=== PATIENT | female | born 1935 | race Caucasian/White ===

== ENCOUNTER 2018-06-13 14:47 | Inpatient (IN) ==
[2018-06-13] MEDS ORDERED: Mag Hydrox/Al Hydrox/Simeth 30 ML UDC PO PRN (16:43)
[2018-06-13] MEDS ORDERED: *HR* OxyCODONE Immed Rel 5 MG TABLET PO PRN ×2 (16:57)
[2018-06-13] MEDS ORDERED: NON-FORMULARY MEDICATION 1 EACH EACH (Albuterol Sulfate [Proair Respiclick] 2 PUFF) IH PRN (17:04)
[2018-06-13] MEDS ORDERED: Albuterol 2.5 MG/3 ML NEBULIZER IH PRN ×2 (17:04→20:30)
[2018-06-13] MEDS: *HR* Heparin 5,000 UNIT/ML VIAL SQ SCH (18:30)
[2018-06-13] MEDS ORDERED: Budesonide/Formoterol 80/4.5 MDI IH ONE (19:42)
[2018-06-13] MEDS: Budesonide/Formoterol 80/4.5 MDI IH SCH (19:46)
[2018-06-13] MEDS: Letrozole 2.5 MG TABLET PO SCH (21:09)
[2018-06-13] MEDS: Aspirin 325 MG TABLET PO SCH (21:09)
[2018-06-13] MEDS: Pregabalin 75 MG CAPSULE PO SCH (21:10)
[2018-06-14 06:41] LABS: Basophils % 0.5 %; Eosinophils # 0.1 K/mcL (0.0-0.6); Hematocrit 24.1 % (35.3-44.9); Hemoglobin 7.8 g/dL (11.5-15.4); Immature Granulocytes % 0.3 % (0-4); Lymphocytes # 0.9 K/mcL (0.6-4.6); Lymphocytes % 14.8 %; Mean Corpuscular HGB Conc 32.4 g/dL (31.6-35.5); Mean Corpuscular Hemoglobin 30.7 pg (28.0-33.3); Mean Corpuscular Volume 94.9 fL (83.0-100.0); Mean Platelet Volume 10.6 fL (9.4-12.4); Monocytes # 0.9 K/mcL (0.0-1.3); Monocytes % 14.8 %; Platelet Count 131 K/mcL (140-400); Red Blood Count 2.54 M/mcL (3.82-4.97); Red Cell Distribution Width 13.3 % (11.5-14.5); Segmented Neutrophils % 67.6 %
[2018-06-14 06:42] LABS: INR 1.1; Prothrombin Time 12.8 Seconds (9.4-12.1)
[2018-06-14] MEDS: *HR* Heparin 5,000 UNIT/ML VIAL SQ SCH ×2 (06:43→17:47)
[2018-06-14 06:51] LABS: Alanine Aminotransferase 12 Units/L (7-52); Albumin 2.9 g/dL (3.5-5.7); Albumin/Globulin Ratio 1.3 (1.1-2.2); Alkaline Phosphatase 50 Units/L (34-104); Aspartate Amino Transferase 32 Units/L (13-39); BUN/Creatinine Ratio 21 (6-26); Bilirubin,Total 0.4 mg/dL (0.3-1.0); Blood Urea Nitrogen 21 mg/dL (8-23); Carbon Dioxide 25 mEq/L (23-29); Chloride 108 mEq/L (98-107); Globulin 2.2 g/dL (2.4-3.5); Glucose 111 mg/dL (70-105); Osmolality,Calculated 288 (280-300); Potassium 4.5 mEq/L (3.5-5.1); Sodium 137 mEq/L (136-145); Total Protein 5.1 g/dL (6.4-8.9); eGFR For Non-African Americans 52 (> 60)
[2018-06-14] MEDS: Budesonide/Formoterol 80/4.5 MDI IH SCH ×2 (09:11→21:01)
[2018-06-14] MEDS: Lisinopril 20 MG TABLET PO SCH (09:40)
[2018-06-14] MEDS: Cholecalciferol (D-3) 1,000 UNIT TABLET PO SCH (09:40)
--- NOTE | 2018-06-14 12:21 | Internal Med History&Physical ---
Addendum entered and electronically signed by Sherif Lynn MD 06/14/18 13:55: I have personally performed a face to face evaluation on this patient. I have r eviewed and agree with the care plan. History and Exam by me shows: Patient is status post lumbar fusion by Dr. Early on 06/10/2018. The patient had postoperative confusion which apparently was delirium and this is slowly but surely improving. She and her note that it is worse at night. She has not moved her bowels since before surgery and we talked about this, at length. She had a right foot drop and numbness at her right foot but this is improving, postoperatively. Past medical history was reviewed and there is no change, postoperatively. She is mildly hard of hearing and wears dentures. She has a left neck without injury or trauma. This began last evening. There is no associated radicular symptoms, etc. She also has a sore throat which began last night. Patient has no complaint of chest discomfort, dyspnea, orthopnea, breathing problems, palpitations, nausea or vomiting, constipation or diarrhea, other changes in bowel habits, heartburn, difficulty with urination, kidney problems or kidney stones, fevers chills or sweats, rash or itching, seizures, headache or lightheadedness, heat or cold intolerance, blood problems or anemia, or other new complaints, except as mentioned above. Review of systems is otherwise negative. Examination: (Except as mentioned above): General: In no apparent distress, alert and oriented 3. Head: Atraumatic and normocephalic. Eyes: Extraocular muscles are intact, pupils equal round and reactive to light and accommodation. Sclerae anicteric. Ears: External ears are normal to inspection and hearing is grossly normal. Nose: Patent without lesion noted. Mouth: No intraoral lesions seen. She has full dentures in place. Throat is normal to appearance. Neck: Supple with trachea midline. There is no thyromegaly or adenopathy and carotids are 2+ without bruit heard. Respiratory: No use of accessory muscles. Lungs are clear throughout. Normal airflow. Cardiovascular: Regular rate and rhythm without murmur appreciated. Abdomen: Bowel sounds are normal. No hepatosplenomegaly masses or tenderness. Obese and therefore difficult to palpate deeply. She is wearing an abdominal brace for back support.Patient is examined upright in chair and this also limits exam. Extremities: No cyanosis clubbing or edema. Neurological: A and O 3. Cranial nerves II through XII are intact. No focal deficits and no abnormal movements or postures. Skin: Warm and non-diaphoretic with no lesions noted. Breasts, pelvic and rectal: Not examined. She will continue with therapies as planned. I encouraged and patient that delirium should be improving over the next several days. We will decrease her pain medicines as tolerated and prefer Tylenol, avoiding opioids as possible. Patient and were acceptable. We will use MiraLAX for a laxative, hoping that that will take care of her constipation. She has anemia which I assume is at least partially acute blood loss and this will need to be followed, checking again on June 17. Original Note: Date of Encounter: 06/14/18 Time of Encounter: 12:14 Assessment and Plan (1) S/P lumbar laminectomy Current visit: Yes Status: Acute Patient was transferred to this facility from an [facility] after having a L3-S1 lumbar longo/fix/fusion. On neurological exam patient does show right dorsiflexion weakness at 3/5 but otherwise no focal deficits noted. Patient has experienced confusion since her surgical intervention, but presently is cooperative. Patient complains of slight pain to lumbar surgical site denies any lumbar radicular symptoms. Afebrile. His therapy evaluation pending. We will continue with current medications. Will change patient's current pain medication to tramadol due to current confusion while on oxycodone. (2) COPD (chronic obstructive pulmonary disease) Current visit: Yes Status: Chronic No acute issues. Patient's lungs are clear throughout. No productive cough and respiratory effort appears relaxed. We will continue with current medications. Qualifiers: COPD type: unspecified COPD Qualified Code(s): J44.9 - Chronic obstructive pulmonary disease, unspecified (3) Confusion Current visit: Yes Status: Acute Patient has experienced confusion since her surgery. No documented history of dementia noted. Patient currently is cooperative and appears only mildly confused. We will change patient's pain medication to tramadol. Will evaluate patient's sleep medications. (4) Hypertension Current visit: Yes Status: Chronic Vital signs are stable. We will continue with current medications. Qualifiers: Hypertension type: unspecified Qualified Code(s): I10 - Essential (primary) hypertension Internal Medicine - H&P: HPI Chief complaint: s/p lumbar longo/fix/fusion Admitted From: Hospital to Hospital Transfer Plans for Post Hospital Care: Home History of present illness: Ms. Nayak is a 82 year old female, who was transferred to this facility for rehabilitation after having a L3-S1 lumbar longo/fix/fusion on 06/10/18. Patient had a fairly uneventful surgical recovery while at [facility]. Patient did experience postoperative confusion that has remained pleasant and compliant with care. No documented history of dementia noted in records. Patient has a long history of chronic low back pain, hypertension, a aortic aneurysm, COPD and a history of breast CA, which was surgically treated in July 2017. Patient currently appears relaxed and complains of mild surgical pain to her lumbar area . Denies any radicular symptoms. Patient currently is mildly confused but able to answer simple questions appropriately. Patient is cooperative with exam. Denies any chest discomforts, palpitations, dyspnea or productive cough. Lumbar surgical wound with dressing appears dry and intact. No focal deficits noted on neurological exam except for weakness on her right dorsi flexion, which reporte dly was present during her exam at previous facility. Past Med Surg Social Fam HX - Past Medical History Medical history: COPD, hyperlipidemia, hypertension Additional medical history: AAA, OA, pacer Psychiatric history: no psych history - Past Surgical History Surgical History: cataract, cholecystectomy, pacemaker/AICD Additional surgical history: supris midurethal sling/cystoscopy,LHC,dual chamber permanent pacemaker,colonoscopy,US guided lt breast bx - Social History Smoking Status: Never smoker Smokeless Tobacco Status: No Alcohol use: none Drug use: none Internal Medicine - H&P: Meds Aspirin 325 mg PO QPM 01/03/15 [History] Calcium Carbonate/Vitamin D3 [Calcium 600 + D Tablet] 1 tab PO DAILY 01/03/15 [History] Lisinopril [Zestril] 20 mg PO DAILY 01/03/15 [History] Metoprolol [Lopressor] 25 mg PO BID 01/03/15 [History] Simvastatin [Zocor] 20 mg PO HS 01/03/15 [History] Cyanocobalamin (B-12) [Vitamin B12] 1,000 mcg IM QMONTH 12/14/16 [History] Albuterol Neb [Proventil Neb] 2.5 mg IH DAILY PRN 06/26/17 [History] Albuterol Sulfate [Proair Respiclick] 2 puff IH PRN PRN 06/26/17 [History] Fluticasone/Salmeterol [Advair 250-50 Diskus] 1 tab IH BID 06/26/17 [History] Pregabalin [Lyrica] 150 mg PO 2100 03/20/18 [History] Benzonatate [Tessalon] 100 mg PO TID #15 capsule 04/25/18 [Rx] Magic Mouthwash [Magic Mouthwash BLM] 10 ml PO QID #240 ml 04/25/18 [Rx] Montelukast [Singulair] 10 mg PO DAILY #30 tablet 04/25/18 [Rx] Nystatin [Nystatin Suspension] 15 ml PO TID #240 oral.susp 04/25/18 [Rx] Letrozole [Femara] 2.5 mg PO QPM 06/13/18 [History] Allergy/AdvReac Type Severity Reaction Status Date / Time solifenacin [From Vesicare] Allergy See Verified 04/25/18 11:56 Comments Sulfa (Sulfonamide Allergy See Verified 04/25/18 11:56 Antibiotics) Comments trospium Allergy See Verified 04/25/18 11:56 Comments All Systems PM: A 10-system review of systems was performed and is negative for pertinent findings except as documented above in the HPI. - Constitutional Constitutional: as per HPI, no chills, no fever(s), no night sweats - EENT Eyes: as per HPI, no change in vision, no discharge, no pain, no photophobia Ears: no ear discharge, no ear pain, no tinnitus Nose, mouth and throat: as per HPI, no dysphagia, no nasal discharge, no neck pain, no sore throat - Breasts Breasts: as per HPI - Cardiovascular Cardiovascular ROS IM: as per HPI, no chest pain, no diaphoresis, no dyspnea, no lightheadedness, no palpitations, no syncope - Respiratory Respiratory: as per HPI, no cough, no dyspnea, no wheezing, no excessive phlegm production - Gastrointestinal Gastrointestinal: as per HPI, no abdominal pain, no diarrhea, no hematemesis, no hematochezia, no melena, no nausea, no vomiting - Genitourinary Genitourinary: as per HPI, no change in urinary stream, no dysuria, no flank pain, no hematuria - Musculoskeletal Musculoskeletal ROS IM: as per HPI, no numbness, no tingling - Integumentary Integumentary IM: as per HPI, no rash, no unusual bruising - Neurological Neurological ROS: as per HPI, no confusion, no convulsions, no focal weakness, no numbness, no tingling, no tremor(s) - Hematologic/Lymphatic Hematologic/Lymphatic: no easy bruising - Constitutional Vitals: Temp Pulse Resp BP Pulse Ox 98.8 F 81 16 106/67 96 06/14/18 07:01 06/14/18 07:01 06/14/18 07:01 06/14/18 07:01 06/14/18 07:01 General appearance: Present: A&O X 2 Exam: Patient with some hesitation on answering complex questions but answers most questions appropriately. Follows commands well. Patient unable to relate time but otherwise appears fairly oriented. - Head Head exam: Present: atraumatic, normocephalic - Eye Eye exam: Present: PERRL, conjuntiva pink, sclera anicteric Pupils: Present: PERRL - Neck Neck exam general surgery: Present: supple, trachea midline. Absent: lymphadenopathy - Respiratory Respiratory exam: Present: CTAB. Absent: accessory muscle use, rales, rhonchi, wheezes - Cardiovascular Cardiovascular exam: Present: RRR, +S1, +S2. Absent: diastolic murmur, gallop, rubs, systolic murmur - GI/Abdominal GI/Abdominal exam: Present: normal bowel sounds, soft, no peritoneal signs. Absent: distended, tenderness - Extremities Exam Extremities exam: Present: warm, radial pulses palpable and symmetrical. Absent: calf tenderness, cyanotic, pedal edema - Back Exam Additional comments: Lumbar region with surgical dressing that is dry and intact. Patient with LSO brace - Neurological Exam Neurological exam: Present: CN II-XII intact, oriented X3, no focal deficits. Absent: pronater drift, facial droop, speech deficit - Skin Skin exam: Present: dry, intact Internal Med - H&P Results - Labs CBC & Chem 7: 06/14/18 06:17 06/14/18 06:17 Labs: Short CBC 06/14/18 Range/Units 06:17 WBC 5.9 (4.3-11.1) K/mcL Hgb 7.8 L (11.5-15.4) g/dL Hct 24.1 L (35.3-44.9) % Plt Count 131 L (140-400) K/mcL Neutrophils # 4.0 (1.6-8.9) K/mcL BMP 06/14/18 06:17 Sodium 137 Potassium 4.5 Chloride 108 H Carbon Dioxide 25 BUN 21 Creatinine 1.01 Glucose 111 H Calcium 9.0 Liver Function 06/14/18 Range/Units 06:17 Total Bilirubin 0.4 (0.3-1.0) mg/dL AST 32 (13-39) Units/L ALT 12 (7-52) Units/L Alkaline Phosphatase 50 (34-104) Units/L Albumin 2.9 L (3.5-5.7) g/dL - VTE Documentation of Mechanical Device: Graduated compression elastic hosiery
[2018-06-14] MEDS: Acetaminophen 325 MG TABLET PO PRN (14:54)
[2018-06-14] MEDS: Letrozole 2.5 MG TABLET PO SCH (20:59)
[2018-06-14] MEDS: Pregabalin 75 MG CAPSULE PO SCH (20:59)
[2018-06-14] MEDS: Aspirin 325 MG TABLET PO SCH (20:59)
[2018-06-14 21:54] LABS: Bilirubin,Urine Negative (Negative); Blood,Urine Negative (Negative); Clarity,Urine Clear (Clear); Color,Urine Yellow (Yellow); Glucose,Urine (UA) Normal (Normal); Ketones,Urine Negative (Negative); Leukocyte Esterase,Urine Negative (Negative); Nitrite,Urine Negative (Negative); Protein,Urine Negative (Neg-Trace); Urobilinogen,Urine Normal (Normal)
[2018-06-15] MEDS: *HR* Heparin 5,000 UNIT/ML VIAL SQ SCH ×2 (04:44→17:47)
[2018-06-15 06:00] LABS: Hematocrit 22.6 % (35.3-44.9); Hemoglobin 7.4 g/dL (11.5-15.4); Mean Corpuscular HGB Conc 32.7 g/dL (31.6-35.5); Mean Corpuscular Hemoglobin 30.8 pg (28.0-33.3); Mean Corpuscular Volume 94.2 fL (83.0-100.0); Mean Platelet Volume 10.5 fL (9.4-12.4); Platelet Count 145 K/mcL (140-400); Red Cell Distribution Width 13.2 % (11.5-14.5)
[2018-06-15 06:15] LABS: Alanine Aminotransferase 14 Units/L (7-52); Albumin 2.9 g/dL (3.5-5.7); Albumin/Globulin Ratio 1.3 (1.1-2.2); Alkaline Phosphatase 55 Units/L (34-104); Aspartate Amino Transferase 33 Units/L (13-39); BUN/Creatinine Ratio 20 (6-26); Bilirubin,Total 0.4 mg/dL (0.3-1.0); Blood Urea Nitrogen 20 mg/dL (8-23); Calcium 8.9 mg/dL (8.6-10.3); Carbon Dioxide 27 mEq/L (23-29); Chloride 106 mEq/L (98-107); Globulin 2.2 g/dL (2.4-3.5); Glucose 106 mg/dL (70-105); Magnesium 1.9 mg/dL (1.6-2.6); Osmolality,Calculated 287 (280-300); Potassium 4.1 mEq/L (3.5-5.1); Sodium 137 mEq/L (136-145); Total Protein 5.1 g/dL (6.4-8.9); eGFR For Non-African Americans 52 (> 60)
[2018-06-15] MEDS: Acetaminophen 325 MG TABLET PO PRN (06:55)
[2018-06-15] MEDS: Cholecalciferol (D-3) 1,000 UNIT TABLET PO SCH (08:55)
[2018-06-15] MEDS: Lisinopril 20 MG TABLET PO SCH (08:55)
[2018-06-15] MEDS: traMADol 50 MG TABLET PO PRN ×2 (09:07→20:29)
--- NOTE | 2018-06-15 09:15 | Internal Med Progress Note ---
Date of Encounter: 06/15/18 Time of Encounter: 09:13 - Assessment and plan (1) Anemia Current Visit: Yes Status: Acute Assessment and plan: H/H noted to be low , Iron studies and B12 ordered added iron empirically followup h/h later stool for blood as well Qualifiers: Anemia type: unspecified type Qualified Code(s): D64.9 - Anemia, unspecified (2) S/P lumbar laminectomy Current Visit: Yes Status: Acute Assessment and plan: Getting rehab Her incision is doing well overall getting better still has drop foot may need a brace on right side will follow (3) COPD (chronic obstructive pulmonary disease) Current Visit: Yes Status: Chronic Assessment and plan: using inhalers doing well no acute issues Qualifiers: COPD type: unspecified COPD Qualified Code(s): J44.9 - Chronic obstructive pulmonary disease, unspecified (4) Hypertension Current Visit: Yes Status: Chronic Assessment and plan: stable continue present meds Qualifiers: Hypertension type: unspecified Qualified Code(s): I10 - Essential (primary) hypertension - Subjective Interval history: no active issues except for constipation Her pain seems to be well controlled. Getting rehab . no fever or chills no nausea vomiting or diarrhea breathing is baseline - Constitutional Vitals: Temp Pulse Resp BP Pulse Ox 98.8 F 78 15 117/56 96 06/15/18 07:29 06/15/18 07:29 06/15/18 07:29 06/15/18 07:29 06/15/18 07:29 General appearance: Present: A&O X 2, A&O X 3, pleasant, no acute distress - Head Head exam: Present: atraumatic - Eye Eye exam: Present: EOMI, PERRL Pupils: Present: normal accommodation - Neck Neck exam general surgery: Present: supple. Absent: tenderness, nuchal rigidity, thyromegaly - Respiratory Respiratory exam: Present: CTAB. Absent: accessory muscle use, chest wall tenderness, prolonged expiratory phase, rales, respiratory distress, rhonchi, stridor, wheezes, tachypnea - Cardiovascular Cardiovascular exam: Present: RRR, +S1, +S2. Absent: distant heart sounds, gallop, JVD, rubs, systolic murmur, tachycardia - GI/Abdominal GI/Abdominal exam: Present: normal bowel sounds, soft. Absent: firm, guarding, mass, rebound, rigid, splenomegaly, tenderness, no peritoneal signs - Extremities Exam Extremities exam: Absent: pedal edema, tenderness, warm - Incison Incision: Present: clean and dry, intact. Absent: draining, swollen, inflamed, erythema, purulent, indurated, serous, serosanguinous Comments: has abby - Neurological Exam Neurological exam: Present: CN II-XII intact, oriented X3, strengths equal and symetr throughout. Absent: pronater drift, speech deficit Additional comments: right foot drop Internal Medicine: Result - Labs CBC & Chem 7: 06/15/18 05:25 06/15/18 05:25 Labs: Short CBC 06/15/18 Range/Units 05:25 WBC 4.6 (4.3-11.1) K/mcL Hgb 7.4 L (11.5-15.4) g/dL Hct 22.6 L (35.3-44.9) % Plt Count 145 (140-400) K/mcL BMP 06/15/18 05:25 Sodium 137 Potassium 4.1 Chloride 106 Carbon Dioxide 27 BUN 20 Creatinine 1.01 Glucose 106 H Calcium 8.9 Liver Function 06/15/18 Range/Units 05:25 Total Bilirubin 0.4 (0.3-1.0) mg/dL AST 33 (13-39) Units/L ALT 14 (7-52) Units/L Alkaline Phosphatase 55 (34-104) Units/L Albumin 2.9 L (3.5-5.7) g/dL Urine 06/14/18 Range/Units 21:01 Urine Color Yellow (Yellow) Urine Clarity Clear (Clear) Urine pH 7.0 (5.0-8.0) pH Units Ur Specific [place]kel[place] 1.010 (1.010-1.025) Urine Protein Negative (Neg-Trace) mg/dL Urine Glucose (UA) Normal (Normal) mg/dL - ABG Interpretation ABG results: PT/INR, D-dimer PT 12.8 Seconds (9.4-12.1) H 06/14/18 06:17 - Impressions Impressions Chest X-Ray 06/15/18 08:00 IMPRESSION: No acute abnormality. D/ / Yemi Jiang MD / Yemi Jiang MD Interpreting Provider: Yemi Jiang MD - VTE Documentation of Mechanical Device: Graduated compression elastic hosiery Consult Discharge Plan - Plan Referrals: Satya Munoz DO [Primary Care Provider] -
[2018-06-15 11:05] LABS: Thyroid Stimulating Hormone 3.517 mcIU/mL (0.340-5.600)
[2018-06-15] MEDS: Budesonide/Formoterol 80/4.5 MDI IH SCH ×2 (11:27→20:29)
[2018-06-15] MEDS: Sennosides/Docusate Sodium TABLET PO SCH ×2 (17:47→20:28)
[2018-06-15] MEDS: Aspirin 325 MG TABLET PO SCH (20:27)
[2018-06-15] MEDS: Letrozole 2.5 MG TABLET PO SCH (20:28)
[2018-06-15] MEDS: Pregabalin 75 MG CAPSULE PO SCH (20:28)
[2018-06-16] MEDS: *HR* Heparin 5,000 UNIT/ML VIAL SQ SCH ×2 (06:40→17:59)
[2018-06-16] MEDS: Lisinopril 20 MG TABLET PO SCH (08:38)
[2018-06-16] MEDS: Sennosides/Docusate Sodium TABLET PO SCH ×2 (08:38→21:14)
[2018-06-16] MEDS: Cholecalciferol (D-3) 1,000 UNIT TABLET PO SCH (08:38)
[2018-06-16] MEDS: Budesonide/Formoterol 80/4.5 MDI IH SCH ×2 (08:40→21:15)
--- NOTE | 2018-06-16 09:03 | Internal Med Progress Note ---
Date of Encounter: 06/16/18 Time of Encounter: 09:01 - Assessment and plan (1) Anemia Current Visit: Yes Status: Acute Assessment and plan: Started on iron followup It should help increase her H/H Guaice pending . Qualifiers: Anemia type: iron deficiency Qualified Code(s): D50.0 - Iron deficiency anemia secondary to blood loss (chronic) (2) S/P lumbar laminectomy Current Visit: Yes Status: Acute Assessment and plan: stable pain is getting better she is in PT and tolerating it well she might need a brace for her foot drop (3) COPD (chronic obstructive pulmonary disease) Current Visit: Yes Status: Chronic Assessment and plan: stable using Inhalers no issues at the present time Qualifiers: COPD type: unspecified COPD Qualified Code(s): J44.9 - Chronic obstructive pulmonary disease, unspecified (4) Hypertension Current Visit: Yes Status: Chronic Assessment and plan: stable . continue resent management Qualifiers: Hypertension type: unspecified Qualified Code(s): I10 - Essential (primary) hypertension - Subjective Interval history: No active issues constipation has improved. She was noted to be low i sofia and h/h .Doing better and i mproved at the present time .N nausea vomiting or diarrhea breathing is baseline - Constitutional Vitals: Temp Pulse Resp BP Pulse Ox 98.0 F 76 16 116/75 96 06/16/18 07:03 06/16/18 07:03 06/16/18 07:03 06/16/18 07:03 06/16/18 07:03 General appearance: Present: A&O X 3, pleasant, no acute distress - Head Head exam: Present: atraumatic - Eye Eye exam: Present: EOMI, PERRL. Absent: conjuntiva pink, sclera anicteric Pupils: Present: PERRL - Neck Neck exam general surgery: Present: supple, trachea midline. Absent: tenderness, nuchal rigidity - Respiratory Respiratory exam: Present: CTAB. Absent: prolonged expiratory phase, rales, respiratory distress, stridor, wheezes - Cardiovascular Cardiovascular exam: Present: RRR, +S1, +S2. Absent: JVD, systolic murmur - GI/Abdominal GI/Abdominal exam: Present: normal bowel sounds, soft. Absent: mass, rigid, splenomegaly, tenderness - Extremities Exam Extremities exam: Absent: pedal edema, tenderness - Incison Incision: Present: clean and dry, intact. Absent: red, swollen, inflamed, erythema - Neurological Exam Neurological exam: Present: CN II-XII intact, oriented X3. Absent: pronater drift, facial droop, speech deficit Additional comments: foot drop right side Internal Medicine: Result - Labs CBC & Chem 7: 06/15/18 05:25 06/15/18 05:25 - ABG Interpretation ABG results: PT/INR, D-dimer PT 12.8 Seconds (9.4-12.1) H 06/14/18 06:17 - VTE Documentation of Mechanical Device: Graduated compression elastic hosiery Consult Discharge Plan - Plan Referrals: Satya Munoz DO [Primary Care Provider] -
[2018-06-16] MEDS: traMADol 50 MG TABLET PO PRN ×2 (09:07→21:15)
[2018-06-16] MEDS: Acetaminophen 325 MG TABLET PO PRN (17:55)
[2018-06-16] MEDS: Letrozole 2.5 MG TABLET PO SCH (21:14)
[2018-06-16] MEDS: Aspirin 325 MG TABLET PO SCH (21:14)
[2018-06-16] MEDS: Pregabalin 75 MG CAPSULE PO SCH (21:14)
[2018-06-17] MEDS: *HR* Heparin 5,000 UNIT/ML VIAL SQ SCH ×2 (06:12→17:29)
[2018-06-17] MEDS: Sennosides/Docusate Sodium TABLET PO SCH ×2 (08:36→20:05)
[2018-06-17] MEDS: Cholecalciferol (D-3) 1,000 UNIT TABLET PO SCH (08:36)
[2018-06-17] MEDS: Acetaminophen 325 MG TABLET PO PRN (08:36)
[2018-06-17] MEDS: Lisinopril 20 MG TABLET PO SCH (08:37)
--- NOTE | 2018-06-17 11:11 | Internal Med Progress Note ---
Addendum entered and electronically signed by Sherif Lynn MD 06/17/18 11:18: I have personally performed a face to face evaluation on this patient. I have r eviewed and agree with the care plan. History and Exam by me shows: Patient is without complaint. She has no problems with bowels or bladder. She is doing well in therapy. Nursing notes that she is frequently confused, especially at night. Discussed care with other providers and/or nursing. Patient has no complaint of chest discomfort, dyspnea, orthopnea, palpitations, nausea or vomiting, constipation or diarrhea, other changes in bowel habits, difficulty with urination, rash or itching, or other new complaints, except as mentioned above. Review of systems is otherwise negative. Examination: (Except as mentioned above): General: In no apparent distress. Alert and oriented 3. Nondiaphoretic. Head: Atraumatic and normocephalic. Respiratory: No use of accessory muscles. Lungs are clear throughout. Normal airflow. Cardiovascular: Regular rate and rhythm without murmur appreciated. Abdomen: Bowel sounds are normal. No hepatosplenomegaly mass or tenderness appreciated. Obese and therefore difficult to palpate deeply. Extremities: No cyanosis clubbing or edema. Skin: Warm and non-diaphoretic with no new lesions noted. We will continue therapies, as planned. I have told nursing that this represents delirium and/or dementia with worsening because of change in env ironment. We will keep an eye on her. She has no neurologic deficits, otherwise. Original Note: Date of Encounter: 06/17/18 Time of Encounter: 11:09 - Assessment and plan (1) S/P lumbar laminectomy Current Visit: Yes Status: Acute Assessment and plan: pain controlled. continue PT and OT. will follow progress. f/u with surgeon as scheduled. does have right foot drop, this was present prior to surgery. LSO brace when up. (2) Confusion Current Visit: Yes Status: Acute Assessment and plan: intermittent and mild. will monitor. (3) Anemia Current Visit: Yes Status: Acute Assessment and plan: last hgb 7.4, asymptomatic. continue ferrous sulfate. Qualifiers: Anemia type: iron deficiency Qualified Code(s): D50.0 - Iron deficiency ane manan secondary to blood loss (chronic) - Time Spent With Patient less than 15 minutes - Subjective Interval history: participating well with therapy. pain controlled with tramadol and tylenol. denies any numbness to BLE, fever, chills, NVD, SOB or chest pain. on ferrous sulfate for anemia. has intermittent mild confusion. U/A negative. wearing LSO brace when up. maintaining appetite and hydration. bowels moving as normal. - Constitutional Vitals: Temp Pulse Resp BP Pulse Ox 98.1 F 75 15 95/60 97 06/17/18 08:08 06/17/18 08:08 06/17/18 08:08 06/17/18 08:08 06/17/18 08:08 General appearance: Present: A&O X 3, pleasant, no acute distress, answers questions appropriately - Head Head exam: Present: atraumatic, normocephalic - Eye Eye exam: Present: PERRL, conjuntiva pink, sclera anicteric Pupils: Present: PERRL - Neck Neck exam general surgery: Present: supple, trachea midline. Absent: lymphadenopathy - Respiratory Respiratory exam: Present: CTAB. Absent: accessory muscle use, rales, rhonchi, wheezes - Cardiovascular Cardiovascular exam: Present: RRR, +S1, +S2. Absent: diastolic murmur, gallop, rubs, systolic murmur - GI/Abdominal GI/Abdominal exam: Present: normal bowel sounds, soft, no peritoneal signs. Absent: distended, tenderness - Extremities Exam Extremities exam: Present: warm, radial pulses palpable and symmetrical. Absent: calf tenderness, cyanotic, pedal edema Additional comments: right foot drop - Incison Comments: lumbar incision, drsg dry and intact. no drainage. - Neurological Exam Neurological exam: Present: CN II-XII intact, oriented X3, no focal deficits. Absent: pronater drift, facial droop, speech deficit - Skin Skin exam: Present: dry, intact Internal Medicine: Result - Labs CBC & Chem 7: 06/15/18 05:25 06/15/18 05:25 - ABG Interpretation ABG results: PT/INR, D-dimer PT 12.8 Seconds (9.4-12.1) H 06/14/18 06:17 - VTE Documentation of Mechanical Device: Graduated compression elastic hosiery Consult Discharge Plan - Plan Referrals: Satya Munoz DO [Primary Care Provider] -
[2018-06-17] MEDS: Budesonide/Formoterol 80/4.5 MDI IH SCH ×2 (14:09→19:53)
[2018-06-17] MEDS: traMADol 50 MG TABLET PO PRN (17:29)
[2018-06-17] MEDS: Letrozole 2.5 MG TABLET PO SCH (20:05)
[2018-06-17] MEDS: Aspirin 325 MG TABLET PO SCH (20:05)
[2018-06-17] MEDS: Pregabalin 75 MG CAPSULE PO SCH (20:06)
[2018-06-18] MEDS: *HR* Heparin 5,000 UNIT/ML VIAL SQ SCH ×2 (05:03→18:18)
[2018-06-18] MEDS: traMADol 50 MG TABLET PO PRN (07:47)
[2018-06-18] MEDS: Cholecalciferol (D-3) 1,000 UNIT TABLET PO SCH (07:47)
[2018-06-18] MEDS: Lisinopril 20 MG TABLET PO SCH (07:47)
[2018-06-18] MEDS: Sennosides/Docusate Sodium TABLET PO SCH ×2 (07:48→20:29)
--- NOTE | 2018-06-18 10:11 | Internal Med Progress Note ---
Addendum entered and electronically signed by Sherif Lynn MD 06/18/18 12:21: I have personally performed a face to face evaluation on this patient. I have r eviewed and agree with the care plan. History and Exam by me shows: Patient is without complaint. She notes swelling in her lower extremities, bilaterally. She is wanting to go home and this is planned for later this week. Discussed care with other providers and/or nursing. Patient has no complaint of chest discomfort, dyspnea, orthopnea, palpitations, nausea or vomiting, constipation or diarrhea, other changes in bowel habits, difficulty with urination, rash or itching, or other new complaints, except as mentioned above. Review of systems is otherwise negative. Examination: (Except as mentioned above): General: In no apparent distress. Alert and oriented 3. Nondiaphoretic. Head: Atraumatic and normocephalic. Respiratory: No use of accessory muscles. Lungs are clear throughout. Normal airflow. Cardiovascular: Regular rate and rhythm without murmur appreciated. Abdomen: Bowel sounds are normal. No hepatosplenomegaly mass or tenderness appreciated. Obese and therefore difficult to palpate deeply. Patient is examined upright in chair and this also limits exam. Extremities: No cyanosis clubbing but has 1+ edema at both lower extremities to about mcfp up calves. There is no cord or calf tenderness Skin: Warm and non-diaphoretic with no new lesions noted. Original Note: Date of Encounter: 06/18/18 Time of Encounter: 10:10 - Assessment and plan (1) S/P lumbar laminectomy Current Visit: Yes Status: Acute Assessment and plan: pain controlled. continue PT and OT. will follow progress. f/u with surgeon as scheduled. does have right foot drop, this was present prior to surgery. LSO brace when up. (2) Confusion Current Visit: Yes Status: Acute Assessment and plan: intermittent and mild. will monitor. (3) Anemia Current Visit: Yes Status: Acute Assessment and plan: last hgb 7.4, asymptomatic. continue ferrous sulfate. Qualifiers: Anemia type: iron deficiency Qualified Code(s): D50.0 - Iron deficiency anemia secondary to blood loss (chronic) - Time Spent With Patient less than 15 minutes - Subjective Interval history: Lying in bed. States she slept well. participating well with therapy. pain controlled with tramadol and tylenol. denies any numbness to BLE, fever, chills, NVD, SOB or chest pain. on ferrous sulfate for anemia. has intermittent mild confusion. U/A negative. wearing LSO brace when up. maintai mariano appetite and hydration. bowels moving as normal. - Constitutional Vitals: Temp Pulse Resp BP Pulse Ox 98.0 F 75 14 108/67 99 06/18/18 08:00 06/18/18 08:00 06/18/18 08:00 06/18/18 08:00 06/18/18 08:00 General appearance: Present: A&O X 3, pleasant, no acute distress, answers questions appropriately - Head Head exam: Present: atraumatic, normocephalic - Eye Eye exam: Present: PERRL, conjuntiva pink, sclera anicteric Pupils: Present: PERRL - Neck Neck exam general surgery: Present: supple, trachea midline. Absent: lymphadenopathy - Respiratory Respiratory exam: Present: CTAB. Absent: accessory muscle use, rales, rhonchi, wheezes - Cardiovascular Cardiovascular exam: Present: RRR, +S1, +S2. Absent: diastolic murmur, gallop, rubs, systolic murmur - GI/Abdominal GI/Abdominal exam: Present: normal bowel sounds, soft, no peritoneal signs. Absent: distended, tenderness - Extremities Exam Extremities exam: Present: warm, radial pulses palpable and symmetrical. Absent: calf tenderness, cyanotic, pedal edema - Incison Comments: Lumbar incision dressing dry and intact - Neurological Exam Neurological exam: Present: CN II-XII intact, oriented X3, no focal deficits. Absent: pronater drift, facial droop, speech deficit - Skin Skin exam: Present: dry, intact Internal Medicine: Result - Labs CBC & Chem 7: 06/15/18 05:25 06/15/18 05:25 - ABG Interpretation ABG results: PT/INR, D-dimer PT 12.8 Seconds (9.4-12.1) H 06/14/18 06:17 - VTE Documentation of Mechanical Device: Graduated compression elastic hosiery Consult Discharge Plan - Plan Referrals: Satya Munoz DO [Primary Care Provider] -
[2018-06-18] MEDS: Budesonide/Formoterol 80/4.5 MDI IH SCH ×2 (11:10→20:29)
[2018-06-18] MEDS: Aspirin 325 MG TABLET PO SCH (20:29)
[2018-06-18] MEDS: Pregabalin 75 MG CAPSULE PO SCH (20:29)
[2018-06-18] MEDS: Letrozole 2.5 MG TABLET PO SCH (20:29)
[2018-06-18] MEDS: Acetaminophen 325 MG TABLET PO PRN (22:06)
[2018-06-19] MEDS: *HR* Heparin 5,000 UNIT/ML VIAL SQ SCH ×2 (05:30→17:31)
[2018-06-19 05:33] LABS: Basophils % 0.8 %; Eosinophils # 0.3 K/mcL (0.0-0.6); Eosinophils % 6.7 %; Hematocrit 21.3 % (35.3-44.9); Hemoglobin 6.9 g/dL (11.5-15.4); Immature Granulocytes % 0.6 % (0-4); Lymphocytes % 19.2 %; Mean Corpuscular HGB Conc 32.4 g/dL (31.6-35.5); Mean Corpuscular Hemoglobin 30.8 pg (28.0-33.3); Mean Corpuscular Volume 95.1 fL (83.0-100.0); Monocytes # 0.9 K/mcL (0.0-1.3); Monocytes % 17.8 %; Neutrophils # 2.7 K/mcL (1.6-8.9); Platelet Count 206 K/mcL (140-400); Red Blood Count 2.24 M/mcL (3.82-4.97); Red Cell Distribution Width 13.2 % (11.5-14.5); Segmented Neutrophils % 54.9 %
[2018-06-19] MEDS: Acetaminophen 325 MG TABLET PO PRN (05:34)
[2018-06-19] MEDS: Sennosides/Docusate Sodium TABLET PO SCH ×2 (08:42→21:13)
[2018-06-19] MEDS: Cholecalciferol (D-3) 1,000 UNIT TABLET PO SCH (08:42)
[2018-06-19] MEDS: Lisinopril 20 MG TABLET PO SCH (08:42)
[2018-06-19] MEDS ORDERED: NON-FORMULARY MEDICATION 1 EACH EACH (Cyanocobalamin (B-12) 1,000 MCG) IM SCH (09:00)
[2018-06-19] MEDS: Budesonide/Formoterol 80/4.5 MDI IH SCH ×2 (10:19→21:14)
--- NOTE | 2018-06-19 13:12 | Internal Med Progress Note ---
Date of Encounter: 06/19/18 Time of Encounter: 10:00 - Assessment and plan (1) S/P lumbar laminectomy Current Visit: Yes Status: Acute Assessment and plan: She is doing well with therapies and seems to be improving, nicely. However, she is fatigued from her low hemoglobin and we will transfuse, as noted above. (2) Anemia Current Visit: Yes Status: Acute Assessment and plan: This is a combination of chronic iron deficiency anemia as well as acute blood loss anemia. She has tolerated her hemoglobin in the range of 7-1/2 until the last day or so. Her ankle edema may be a form of high output failure. She has some confusion/delirium and this might be improved by increased oxygen carrying capacity of her blood. For this reason, I feel she needs transfusion of 2 units. Because of her edema, we will give her a one-time dose of IV furosemide in between units. I explained the results to the patient and her . I recommended transfusion. I talked about low risk of viral transmission such as HIV and hepatitis as well as the possibility of an allergic type reaction. They understand and both agreed to her transfusion. Qualifiers: Anemia type: iron deficiency Iron deficiency anemia type: unspecified iron deficiency Qualified Code(s): D50.9 - Iron deficiency anemia, unspecified (3) Hypertension Current Visit: Yes Status: Chronic Assessment and plan: No acute issue. Qualifiers: Hypertension type: unspecified Qualified Code(s): I10 - Essential (primary) hypertension (4) COPD (chronic obstructive pulmonary disease) Current Visit: Yes Status: Chronic Assessment and plan: Clinically stable without acute issues. Qualifiers: COPD type: unspecified COPD Qualified Code(s): J44.9 - Chronic obstructive pulmonary disease, unspecified (5) Pain in right ankle Current Visit: Yes Status: Acute Assessment and plan: The etiology is uncertain and I suspect that she has only soft tissue swelling. This will need to be evaluated further if there is not improvement. We will obtain a d-dimer but I feel that this is very likely not DVT. As mentioned above to patient, I suspect that this is improvement in neurologic function after long foot drop. Qualifiers: Chronicity: acute Qualified Code(s): M25.571 - Pain in right ankle and joints of right foot - Subjective Interval history: Patient is without complaint. She notes that she is somewhat tired with therapy. She denies dizziness or lightheadedness. She admits to confusion at times but is feeling with it, at this point. We discussed her low hemoglobin and the recommendation for transfusion. I told her I would talk to her because of her confusion and she was fine with this. She is hurting at the inner aspect of the right ankle, over the last day or so. This makes her feel like she cannot participate in therapy, as well. She also has mild swelling, right worse than left, at the ankle. She asks what is causing this and I told her that it is difficult to say. We discussed that the pain may be a neurologic condition as she has less foot or up and maybe she has more sensation in the affected extremity. I told her we would empirically check an x-ray to make sure there were no bony changes but otherwise we would attribute this to improve nerve function after her spinal surgery and she seemed pleased with this. Per social service, patient's family has expressed concern about her going home. A state that she is often combative with her at home, prior to her surgical admission. Therapy feels that she is stabilizing and that they have r eached an endpoint or will have by this weekend. She is to discharge on Sunday for this reason. Bowels and bladder are working well and she has no other complaints. Therapy notes that she is not wanting to participate because she is too fatigued. Patient has no complaint of chest discomfort, dyspnea, orthopnea, palpitations, nausea or vomiting, constipation or diarrhea, other changes in bowel habits, difficulty with urination, rash or itching, or other new complaints, except as mentioned above. Review of systems is otherwise negative. I discussed management of her care with nursing staff. - Constitutional Vitals: Temp Pulse Resp BP Pulse Ox 97.8 F 75 16 106/65 96 06/19/18 07:02 06/19/18 07:02 06/19/18 07:02 06/19/18 07:02 06/19/18 07:02 Exam: Examination: (Except as mentioned above): General: In no apparent distress. Alert and oriented 3. Nondiaphoretic. Head: Atraumatic and normocephalic. Respiratory: No use of accessory muscles. Lungs are clear throughout. Normal airflow. Cardiovascular: Regular rate and rhythm without murmur appreciated. Abdomen: Bowel sounds are normal. No hepatosplenomegaly mass or tenderness appreciated. Obese and therefore difficult to palpate deeply. Patient is examined upright in chair and this also limits exam. Extremities: No cyanosis clubbing or calf tenderness. However, there is trace edema in the right lower extremity and at the right ankle and foot dorsum. Skin: Warm and non-diaphoretic with no new lesions noted. Internal Medicine: Result - Labs CBC & Chem 7: 06/19/18 05:20 06/15/18 05:25 Labs: Short CBC 06/19/18 Range/Units 05:20 WBC 4.9 (4.3-11.1) K/mcL Hgb 6.9 L (11.5-15.4) g/dL Hct 21.3 L (35.3-44.9) % Plt Count 206 (140-400) K/mcL Neutrophils # 2.7 (1.6-8.9) K/mcL - ABG Interpretation ABG results: PT/INR, D-dimer PT 12.8 Seconds (9.4-12.1) H 06/14/18 06:17 - Impressions Impressions Ankle X-Ray 06/19/18 11:05 IMPRESSION: Soft tissue swelling is seen at the ankle, with some increased lucency seen below the medial and lateral malleolus. Correlate for any crepitus. If concern for soft tissue gas, this could be further evaluated with cross-sectional imaging. No acute osseous fracture is identified. Degenerative changes are seen in the midfoot. D/ / Huy Vale MD / Huy Vale MD Interpreting Provider: Huy Vale MD - VTE Documentation of Mechanical Device: Graduated compression elastic hosiery Consult Discharge Plan - Plan Referrals: Satya Munoz DO [Primary Care Provider] -
[2018-06-19] MEDS ORDERED: Furosemide 40 MG/4 ML VIAL IVP ONE (13:19)
[2018-06-19] MEDS: Aspirin 325 MG TABLET PO SCH (21:13)
[2018-06-19] MEDS: Pregabalin 75 MG CAPSULE PO SCH (21:13)
[2018-06-19] MEDS: Letrozole 2.5 MG TABLET PO SCH (21:13)
[2018-06-20] MEDS: *HR* Heparin 5,000 UNIT/ML VIAL SQ SCH ×2 (05:01→17:49)
[2018-06-20] MEDS: Sennosides/Docusate Sodium TABLET PO SCH ×2 (08:14→19:29)
[2018-06-20] MEDS: Cholecalciferol (D-3) 1,000 UNIT TABLET PO SCH (08:14)
[2018-06-20] MEDS: Lisinopril 20 MG TABLET PO SCH (08:14)
[2018-06-20] MEDS: Budesonide/Formoterol 80/4.5 MDI IH SCH ×2 (08:40→19:30)
--- NOTE | 2018-06-20 11:19 | Internal Med Progress Note ---
Addendum entered and electronically signed by Pinky Stratton 06/20/18 12:16: I have personally performed a face to face evaluation on this patient. I have reviewed and agree with the care plan. Will recheck Hb Addendum entered and electronically signed by Chet Mendez CNP 06/20/18 11:25: Patient's hemoglobin yesterday dropped to 6.9. Patient was given 2 units of packed RBCs with follow-up hemoglobin at 9.9. No active signs of bleeding noted. Patient tolerated transfusion well and currently denies any dyspnea. Lungs are clear. We will repeat labs in the morning and continue to guaiac stools. Original Note: Date of Encounter: 06/20/18 Time of Encounter: 11:17 - Assessment and plan (1) S/P lumbar laminectomy Current Visit: Yes Status: Acute Assessment and plan: No acute issues. Patient's surgical incision appears to be healing well. No acute neurological deficits noted on exam. Patient's foot drop appears to be improving with current dorsiflexion at 4/5. We will continue with current therapy and plan of care. Patient being prepared for possible discharge tomorrow. (2) COPD (chronic obstructive pulmonary disease) Current Visit: Yes Status: Chronic Assessment and plan: No acute issues. Patient denies any dyspnea or productive cough. We will continue with current bronchodilators and medications. Qualifiers: COPD type: unspecified COPD Qualified Code(s): J44.9 - Chronic obstructive pulmonary disease, unspecified (3) Confusion Current Visit: Yes Status: Acute Assessment and plan: Patient continues with mild confusion. No behavior issues reported per nursing. Patient was appropriate during conversation. And has been cooperative with care. We will continue with current plan of care. Patient being prepared for possible discharge in the morning (4) Hypertension Current Visit: Yes Status: Chronic Assessment and plan: Vital signs were stable. We will continue with current medications. Qualifiers: Hypertension type: unspecified Qualified Code(s): I10 - Essential (primary) hypertension - Time Spent With Patient less than 15 minutes - Subjective Interval history: Patient appears relaxed and currently denies any discomforts or shortness of breath. Patient's confusion has decreased somewhat over the past several days. No behavior issues reported per nursing. Patient reportedly is progressing well with physical therapy. Patient being prepared for possible discharge tomorrow. - Constitutional Vitals: Temp Pulse Resp BP Pulse Ox 97.8 F 75 18 131/77 97 06/20/18 09:15 06/20/18 09:15 06/20/18 09:15 06/20/18 09:15 06/20/18 09:15 General appearance: Present: A&O X 3, pleasant, no acute distress, answers questions appropriately - Head Head exam: Present: atraumatic, normocephalic - Eye Eye exam: Present: PERRL, conjuntiva pink, sclera anicteric Pupils: Present: PERRL - Neck Neck exam general surgery: Present: supple, trachea midline. Absent: lymphadenopathy - Respiratory Respiratory exam: Present: CTAB. Absent: accessory muscle use, rales, rhonchi, wheezes - Cardiovascular Cardiovascular exam: Present: RRR, +S1, +S2. Absent: diastolic murmur, gallop, rubs, systolic murmur - GI/Abdominal GI/Abdominal exam: Present: normal bowel sounds, soft, no peritoneal signs. Absent: distended, tenderness - Extremities Exam Extremities exam: Present: warm, radial pulses palpable and symmetrical. Absent: calf tenderness, cyanotic, pedal edema - Back Exam Additional comments: Lumbar surgical incision appears to be healing well. - Neurological Exam Neurological exam: Present: CN II-XII intact, oriented X3. Absent: pronater drift, facial droop, speech deficit Additional comments: Patient continues to have mild confusion, but was appropriate during conversation during exam. Patient continues to have slight right foot drop, which has improved and currently dorsiflexion is at 4/5 - Skin Skin exam: Present: dry, intact Internal Medicine: Result - Labs CBC & Chem 7: 06/20/18 05:40 06/15/18 05:25 Labs: Short CBC 06/20/18 Range/Units 05:40 Hgb 9.9 L D (11.5-15.4) g/dL - ABG Interpretation ABG results: PT/INR, D-dimer PT 12.8 Seconds (9.4-12.1) H 06/14/18 06:17 D-Dimer 5248 ng/mLFEU (0-500) H 06/19/18 13:45 - Impressions Impressions Ankle X-Ray 06/19/18 11:05 IMPRESSION: Soft tissue swelling is seen at the ankle, with some increased lucency seen below the medial and lateral malleolus. Correlate for any crepitus. If concern for soft tissue gas, this could be further evaluated with cross-sectional imaging. No acute osseous fracture is identified. Degenerative changes are seen in the midfoot. D/ / Huy Vale MD / Huy Vale MD Interpreting Provider: Huy Vale MD - VTE Documentation of Mechanical Device: Graduated compression elastic hosiery Consult Discharge Plan - Plan Referrals: Satya Munoz DO [Primary Care Provider] -
[2018-06-20] MEDS ORDERED: Iron Sucrose Complex 400 MG in 0.9 % Sodium Chloride 250 ML IVPB ONE (13:00)
[2018-06-20] MEDS: Acetaminophen 325 MG TABLET PO PRN (17:49)
[2018-06-20] MEDS: Aspirin 325 MG TABLET PO SCH (19:28)
[2018-06-20] MEDS: Pregabalin 75 MG CAPSULE PO SCH (19:29)
[2018-06-20] MEDS: Letrozole 2.5 MG TABLET PO SCH (19:29)
[2018-06-20] MEDS: traMADol 50 MG TABLET PO PRN (21:45)
[2018-06-21] MEDS: *HR* Heparin 5,000 UNIT/ML VIAL SQ SCH (04:45)
[2018-06-21 04:58] LABS: Basophils # 0.1 K/mcL (0.0-0.2); Basophils % 1.2 %; Eosinophils # 0.4 K/mcL (0.0-0.6); Eosinophils % 6.8 %; Hematocrit 29.3 % (35.3-44.9); Hemoglobin 9.7 g/dL (11.5-15.4); Immature Granulocytes % 0.7 % (0-4); Immature Reticulocyte % 25.1 % (11.0-38.0); Lymphocytes % 16.4 %; Mean Corpuscular HGB Conc 33.1 g/dL (31.6-35.5); Mean Corpuscular Hemoglobin 30.7 pg (28.0-33.3); Mean Corpuscular Volume 92.7 fL (83.0-100.0); Mean Platelet Volume 9.7 fL (9.4-12.4); Monocytes # 0.7 K/mcL (0.0-1.3); Monocytes % 12.3 %; Neutrophils # 3.7 K/mcL (1.6-8.9); Platelet Count 272 K/mcL (140-400); Red Blood Count 3.16 M/mcL (3.82-4.97); Red Cell Distribution Width 13.3 % (11.5-14.5); Retculocyte # 0.05 M/mcL (0.05-0.10); Reticulocyte % 1.7 % (1.6-2.8); Segmented Neutrophils % 62.6 %
[2018-06-21 07:05] VITALS: BP 120/71
[2018-06-21] MEDS: Cholecalciferol (D-3) 1,000 UNIT TABLET PO SCH (08:19)
[2018-06-21] MEDS: Lisinopril 20 MG TABLET PO SCH (08:19)
[2018-06-21] MEDS: Sennosides/Docusate Sodium TABLET PO SCH (08:19)
[2018-06-21] MEDS: Budesonide/Formoterol 80/4.5 MDI IH SCH (10:21)
--- NOTE | 2018-06-21 10:34 | Discharge Summary ---
Addendum entered and electronically signed by Pinky Stratton 06/21/18 13:31: I have personally performed a face to face evaluation on this patient. I have reviewed and agree with the care plan. Pt feels improved after she got iv iron and feeling stronger. Her iron was very low. She reports today that she has had dark tarry stools for a few months. Denies abd pain. Denies vomiting. She is on b12 shots at home. She was given 400 mg Venofir here. She is placed on iron bid po and miralax. She is informed on details and voices understanding. She has not been eating well. Discussed importance. She has in 2018 left breast cancer. She is overall increased in energy and improved with rehab, she is stable for discharge. She was unable to have stool here for occult blood. 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 On req results will be sent to her primary care Dr for follow up on test results. Advised her if pos she will need follow up with GI. Original Note: Date of Encounter: 06/21/18 Time of Encounter: 10:23 - Discharge Diagnosis (1) S/P lumbar laminectomy Priority: Primary Status: Acute Comments: Patient was s/p lumbar longo/fix/fuse. [facility] was transferred to this facility for further rehabilitation due to weakness secondary to her lumbar stenosis. Surgical incision has healed well. Patient continues to have a residual foot drop on the right dorsiflexion which is at 3+/5 muscle strength. Otherwise lower extremities are at 5/5. Bilateral upper extremities at 5/5 muscle strength. Patient states she continues to have some radicular pain to her lower extremities but that it is minimal and usually increases during mobilization. Patient is continue with her physical therapy through home health services. Patient recommended to follow-up with orthopedic surgeon and PCP within one week after discharge. We will continue with current medications (2) COPD (chronic obstructive pulmonary disease) Priority: Secondary Status: Chronic Comments: No acute issues during her stay at facility. Patient denies any dyspnea or productive cough. Lungs are clear throughout. We will continue with current medications after discharge to home. Patient recommended to follow-up with PCP in one week Qualifiers: COPD type: unspecified COPD Qualified Code(s): J44.9 - Chronic obstructive pulmonary disease, unspecified (3) Confusion Priority: Secondary Status: Acute Comments: Patient continues to have mild confusion. Appropriate during conversation but reported confusion at night. No behavior issues reported. Patient to continue with home health services at discharge to home (4) Hypertension Priority: Secondary Status: Chronic Comments: Vital signs remained stable during his stay. Patient to continue with home medications. Qualifiers: Hypertension type: unspecified Qualified Code(s): I10 - Essential (primary) hypertension Hospital course: Ms. Nayak is a 82 year old female, who was transferred to this facility for rehabilitation after having a L3-S1 lumbar longo/fix/fusion on 06/10/18. Patient had a uneventful surgical recovery while at [facility]. Patient did experience postoperative confusion but has remained pleasant and compliant with care. No documented history of dementia noted in records. Patient has a long history of chronic low back pain, hypertension, a aortic aneurysm, COPD and a history of breast CA, which was surgically treated in July 2017. Patient currently appears relaxed and complains of mild surgical pain to her lumbar area and states occasional pain down her legs during mobilization. Denies any chest discomforts, palpitations, dyspnea or productive cough. Lumbar surgical wound appears healthy and healing well. No focal deficits noted on neurological exam except for weakness on her right dorsi flexion, which reportedly was present during her exam at previous facility. Patient has progressed well with physical therapy during her stay. Patient did continue to have issues with anemia. Patient had received a transfusion of 2 units of packed RBCs due to a hemoglobin of 6.9. Post transfusion hemoglobin showed at 9.9 and today on her redraw was at 9.7. Patient had a serum iron of 12 with a 4% saturation. Patient received 1 dose of Imdur for tomorrow and will continue on oral iron. Patient is recommended to follow-up with PCP within one week for labs to be redrawn. Patient is continue follow-up with orthopedic surgeon. Patient is to continue with physical therapy through home health services after discharge. Discharge discussed with: patient Time spent discussing smoking cessation with patient: 3 to 10 minutes - Time Spent with Patient Total time spent providing and/or coordinating discharge services: Less than 30 minutes - Discharge Medications Home Medications: Aspirin 325 mg PO QPM 01/03/15 [History] Calcium Carbonate/Vitamin D3 [Calcium 600 + D Tablet] 1 tab PO DAILY 01/03/15 [History] Lisinopril [Zestril] 20 mg PO DAILY 01/03/15 [History] Metoprolol [Lopressor] 25 mg PO BID 01/03/15 [History] Simvastatin [Zocor] 20 mg PO HS 01/03/15 [History] Cyanocobalamin (B-12) [Vitamin B12] 1,000 mcg IM QMONTH 12/14/16 [History] Albuterol Neb [Proventil Neb] 2.5 mg IH DAILY PRN 06/26/17 [History] Albuterol Sulfate [Proair Respiclick] 2 puff IH PRN PRN 06/26/17 [History] Fluticasone/Salmeterol [Advair 250-50 Diskus] 1 tab IH BID 06/26/17 [History] Pregabalin [Lyrica] 150 mg PO 2100 03/20/18 [History] Benzonatate [Tessalon] 100 mg PO TID #15 capsule 04/25/18 [Rx] Magic Mouthwash [Magic Mouthwash BLM] 10 ml PO QID #240 ml 04/25/18 [Rx] Montelukast [Singulair] 10 mg PO DAILY #30 tablet 04/25/18 [Rx] Nystatin [Nystatin Suspension] 15 ml PO TID #240 oral.susp 04/25/18 [Rx] Letrozole [Femara] 2.5 mg PO QPM 06/13/18 [History] Allergies/Adverse Reactions: Allergy/AdvReac Type Severity Reaction Status Date / Time solifenacin [From Vesicare] Allergy See Verified 04/25/18 11:56 Comments Sulfa (Sulfonamide Allergy See Verified 04/25/18 11:56 Antibiotics) Comments trospium Allergy See Verified 04/25/18 11:56 Comments Date of admission: 06/13/18 15:28 Primary care physician: Satya Munoz Consults: 06/13/18 16:40 Consult to Occupational Therapy [CONS] Routine Comment: Evaluate, develop and implement POC Reason for Consult: s/p lumbar fusion Does patient have active BEDREST order?: No Is patient medically & hemodynamically stable?: Yes Consult to Physical Medicine/Rehab [CONS] Routine Reason for Consult: Please evaluate and manage therapies' guidelines and recommend pathway to reconditioning. Call Completed: Yes Consult to Physical Therapy [CONS] Routine Comment: Evaluate, develop and implement POC Reason for Consult: s/p lumbar fusion Does patient have active BEDREST order?: No Is patient medically & hemodynamically stable?: Yes Consult to Recreational Therapy [CONS] Routine Comment: 06/13/18 16:42 Consult to Estate And Trust Tax Principal [CONS] Routine Reason for SW Consult: Please evaluate for home situation and discharge planning Discharging clinician: Pinky Stratton - Constitutional Vitals: Temp Pulse Resp BP Pulse Ox 98.5 F 77 16 120/71 98 06/21/18 06:00 06/21/18 06:00 06/21/18 06:00 06/21/18 06:00 06/21/18 06:00 General appearance: Present: A&O X 3, pleasant, no acute distress, answers questions appropriately - Head Head exam: Present: atraumatic, normocephalic - Eye Eye exam: Present: PERRL, conjuntiva pink, sclera anicteric Pupils: Present: PERRL - Neck Neck exam general surgery: Present: supple, trachea midline. Absent: lymphadenopathy - Respiratory Respiratory exam: Present: CTAB. Absent: accessory muscle use, rales, rhonchi, wheezes - Cardiovascular Cardiovascular exam: Present: RRR, +S1, +S2. Absent: diastolic murmur, gallop, rubs, systolic murmur - GI/Abdominal GI/Abdominal exam: Present: normal bowel sounds, soft, no peritoneal signs. Absent: distended, tenderness - Extremities Exam Extremities exam: Present: warm, radial pulses palpable and symmetrical. Absent: calf tenderness, cyanotic, pedal edema - Back Exam Additional comments: Lumbar surgical incision appears to be healthy and healing well. - Neurological Exam Neurological exam: Present: CN II-XII intact, oriented X3. Absent: pronater drift, facial droop, speech deficit Additional comments: No focal deficits noted except for continued right dorsiflexion weakness at 3+/5 muscle strength. All other extremities and proximal right leg is at 5/5 muscle strength - Skin Skin exam: Present: dry, intact - Patient Status Disposition: Home Health Service Condition: Good Functional capacity at discharge: uses cane/walker Overall status at discharge: patient is progressing back to baseline - Discharge Instructions Follow Up With: Satya Munoz DO [Primary Care Provider] - - Diet and Activity Activity: ambulate only with your walker, increase activity as tolerated Diet: low fat, low cholesterol, low salt diet - VTE Documentation of Mechanical Device: Graduated compression elastic hosiery
[2018-06-21] MEDS: traMADol 50 MG TABLET PO PRN (12:41)
--- NOTE | 2018-06-21 14:20 | Physician Discharge Referral ---
Home Health/Hosp Referral Info Transfer to: Home Health Provider in Charge Post Discharge: PCP - Diagnosis (1) S/P lumbar laminectomy Priority: Primary Status: Acute (2) COPD (chronic obstructive pulmonary disease) Priority: Secondary Status: Chronic (3) Confusion Priority: Secondary Status: Acute (4) Hypertension Priority: Secondary Status: Chronic - Respiratory Orders Smoking Cessation: Smoking cessation has been advised. For more information, call the [place] Tobacco Quit Line at 6-173-ZTXT-NOW. - Diet/Nutrition Diet/Nutrition Orders: No Added Salt (MORIAH) - Activity Activity Orders: Up ad jessie, Walker - Services Needed Following services are medically necessary services: Nursing, Home Health Aide, Physical Therapy, Occupational Therapy - Transfer Medications Prescriptions: Ferrous Sulfate 325 mg PO BIDWM #60 tablet Sennosides [Senokot] 8.6 mg PO BID #60 tablet Home Medications: Aspirin 325 mg PO QPM 01/03/15 [History] Calcium Carbonate/Vitamin D3 [Calcium 600 + D Tablet] 1 tab PO DAILY 01/03/15 [History] Lisinopril [Zestril] 20 mg PO DAILY 01/03/15 [History] Metoprolol [Lopressor] 25 mg PO BID 01/03/15 [History] Simvastatin [Zocor] 20 mg PO HS 01/03/15 [History] Cyanocobalamin (B-12) [Vitamin B12] 1,000 mcg IM QMONTH 12/14/16 [History] Albuterol Neb [Proventil Neb] 2.5 mg IH DAILY PRN 06/26/17 [History] Albuterol Sulfate [Proair Respiclick] 2 puff IH PRN PRN 06/26/17 [History] Fluticasone/Salmeterol [Advair 250-50 Diskus] 1 tab IH BID 06/26/17 [History] Pregabalin [Lyrica] 150 mg PO 2100 03/20/18 [History] Benzonatate [Tessalon] 100 mg PO TID #15 capsule 04/25/18 [Rx] Magic Mouthwash [Magic Mouthwash BLM] 10 ml PO QID #240 ml 04/25/18 [Rx] Montelukast [Singulair] 10 mg PO DAILY #30 tablet 04/25/18 [Rx] Nystatin [Nystatin Suspension] 15 ml PO TID #240 oral.susp 04/25/18 [Rx] Letrozole [Femara] 2.5 mg PO QPM 06/13/18 [History] Ferrous Sulfate 325 mg PO BIDWM #60 tablet 06/21/18 [Rx] Sennosides [Senokot] 8.6 mg PO BID #60 tablet 06/21/18 [Rx] Allergies/Adverse Reactions: Allergy/AdvReac Type Severity Reaction Status Date / Time solifenacin [From Vesicare] Allergy See Verified 04/25/18 11:56 Comments Sulfa (Sulfonamide Allergy See Verified 04/25/18 11:56 Antibiotics) Comments trospium Allergy See Verified 04/25/18 11:56 Comments Certification: Further, I certify that my clinical findings support that this patient is homebound (i.e. absences from home require considerable and taxing effort and are for medical reasons or jainism services or infrequently or short duration when for other reasons) because: Homebound Reason: Leaving home requires considerable and taxing effort due to condition Attestation: My signature below is to certify that this patient is under my care and that I, or nurse practitioner, or a physician's medical office assistant working with me, has a [id number] encounter with this patient.
== END 2018-06-21 14:50 | disposition home health service (06) | DRG 949 ==
LOC: INPGRE 15:28